=== PATIENT | female | born 1945 | race Caucasian/White ===

== ENCOUNTER 2016-11-09 18:04 | Emergency (ER) | payer MEDICARE, MEDICAID ==
[2016-11-09] MEDS ORDERED: Levofloxacin 500 MG Tab PO ONE (18:05)
[2016-11-09] MEDS ORDERED: Albuterol/Ipratropium 3.0-0.5 MG/3 ML Neb Soln INH ONE (18:05)
[2016-11-09] MEDS ORDERED: predniSONE 20 MG Tab PO ONE (18:05)
[2016-11-09 18:09] VITALS: BP 114/72
[2016-11-09] MEDS ORDERED: Albuterol/Ipratropium 3.0-0.5 MG/3 ML Neb Soln NEB ONE (18:23)
--- NOTE | 2016-11-09 18:29 | EDM.PDOC ---
ED HPI GENERAL MEDICAL PROBLEM - General Chief Complaint: Respiratory Problem Stated Complaint: SOB, COUGH Time Seen by Provider: 11/09/16 18:22 Source of Information: Reports: Patient History Limitations: Reports: No Limitations - History of Present Illness INITIAL COMMENTS - FREE TEXT/NARRATIVE: This patient is a 71 year old female that presents to the ER. Patient reports that started Friday night with a cough. She then reports that on she started with runny nose, congestion, drainage, productive cough, chest congestion, wheezing, shortness of breath. She reports that she was seen by her PCP yesterday, was given injection of steroid and abx. She reports that today she feels about the same as yesterday, with a little more chest congestion today. 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 Pharmacy is now closed. Patient reports having INR draw done yesterday. The patient is alert and oriented. She is able to converse in full and complete sentences. She does not appear in acute distress. Onset Date: 11/06/16 Duration: Day(s): (3) Severity: Mild Improves with: Reports: None Worsens with: Reports: None Associated Symptoms: Reports: Cough, cough w sputum, Shortness of Breath. Denies: Confusion, Chest Pain, Diaphoresis, Fever/Chills, Headaches, Loss of Appetite, Malaise, Nausea/Vomiting, Rash, Seizure, Syncope, Weakness - Related Data Allergies Allergy/AdvReac Type Severity Reaction Status Date / Time No Known Allergies Allergy Verified 11/09/16 18:19 Home Meds: Home Meds Alendronate Sodium [Alendronate] 70 mg PO SA 11/09/16 [History] Aspirin [Halfprin] 81 mg PO DAILY 11/09/16 [History] Carvedilol [Carvedilol] 3.125 mg PO DAILY 11/09/16 [History] Cholecalciferol (Vitamin D3) [Vitamin D3] 2,000 unit PO DAILY 11/09/16 [History] Digoxin [Digoxin] 125 mcg PO DAILY 11/09/16 [History] Furosemide [Furosemide] 40 mg PO QAM 11/09/16 [History] Furosemide [Furosemide] 80 mg PO QPM 11/09/16 [History] Glucosamine HCl [Glucosamine] 3,000 mg PO DAILY 11/09/16 [History] Levothyroxine [Levothyroxine] 125 mcg PO DAILY 11/09/16 [History] Lidocaine 5% [Lidoderm 5%] 700 mg TOP DAILY PRN 11/09/16 [History] Lisinopril [Lisinopril] 2.5 mg PO DAILY 11/09/16 [History] Multivitamin [Daily Multiple Vitamin] 1 tab PO DAILY 11/09/16 [History] Spironolactone [Aldactone] 25 mg PO DAILY 11/09/16 [History] Vitamin B Complex 1 each PO DAILY 11/09/16 [History] Warfarin Sodium [Warfarin Sodium] 2.5 mg PO DAILY 11/09/16 [History] atorvaSTATin Calcium [Atorvastatin Calcium] 20 mg PO DAILY 11/09/16 [History] ED ROS GENERAL - Review of Systems Review Of Systems: See Below Constitutional: Reports: No Symptoms HEENT: Reports: Rhinitis, Sinus Problem Respiratory: Reports: Shortness of Breath, Wheezing, Cough, Sputum Cardiovascular: Reports: No Symptoms. Denies: Chest Pain Endocrine: Reports: No Symptoms GI/Abdominal: Reports: No Symptoms : Reports: No Symptoms Musculoskeletal: Reports: No Symptoms Skin: Reports: No Symptoms Neurological: Reports: No Symptoms Psychiatric: Reports: No Symptoms Hematologic/Lymphatic: Reports: No Symptoms Immunologic: Reports: No Symptoms ED EXAM, GENERAL - Physical Exam Exam: See Below Exam Limited By: No Limitations General Appearance: Alert, WD/WN, No Apparent Distress Eye Exam: Bilateral Eye: Normal Inspection, PERRL Ears: Normal External Exam, Normal Canal, Hearing Grossly Normal, Normal TMs Ear Exam: Bilateral Ear: Auricle Normal, Canal Normal, TM normal Nose: Normal Inspection, Normal Mucosa, No Blood Throat/Mouth: Normal Inspection, Normal Lips, Normal Teeth, Normal Gums, Normal Oropharynx, Normal Voice, No Airway Compromise Head: Atraumatic, Normocephalic Neck: Normal Inspection, Supple, Non-Tender, Full Range of Motion Respiratory/Chest: No Respiratory Distress, No Accessory Muscle Use, Chest Non- Tender, Wheezing (Bilateral upper inspiratory and expiratory. ). No: Respiratory Distress Cardiovascular: Normal Peripheral Pulses, Regular Rate, Rhythm, No Edema, No Gallop, No JVD, No Murmur, No Rub Peripheral Pulses: 2+: Radial (L), Radial (R), Posterior Tibial (L), Posterior Tibial (R), Dorsalis Pedis (L), Dorsalis Pedis (R) Extremities: Normal Inspection, Normal Range of Motion, Non-Tender, No Pedal Edema, Normal Capillary Refill Neurological: Alert, Oriented, Normal Cognition, Normal Gait Psychiatric: Normal Affect, Normal Mood Skin Exam: Warm, Dry, Intact, Normal Color, No Rash Lymphatic: No Adenopathy Course - Vital Signs Last Recorded V/S: Last Vital Signs Temp 96.5 F 11/09/16 18:06 Pulse 89 11/09/16 18:06 Resp 18 11/09/16 18:06 BP 114/72 11/09/16 18:06 Pulse Ox 94 L 11/09/16 18:06 - Orders/Labs/Meds Orders: Active Orders 24 hr Category Date Time Status RT Aerosol Therapy [RC] ASDIRECTED Care 11/09/16 18:23 Active Chest 2V [CR] Stat Exams 11/09/16 18:22 Ordered CULTURE BLOOD [BC] Stat Lab 11/09/16 18:35 Received CULTURE BLOOD [BC] Stat Lab 11/09/16 18:45 Received Blood Culture x2 Reflex Set [OM.PC] Stat Oth 11/09/16 18:23 Ordered Labs: Laboratory Tests 11/09/16 11/09/16 11/09/16 Range/Units 18:35 18:35 18:35 WBC 8.3 (5.0-10.0) 10^3/uL RBC 5.10 (4.00-5.50) 10^6/uL Hgb 14.6 (12.0-16.0) g/dL Hct 45.0 (37.0-47.0) % MCV 88.2 (82.0-94.0) fL MCH 28.6 (27.0-32.0) pg MCHC 32.4 L (33.0-38.0) g/dL RDW Coeff of Kenia 15.9 H (11.0-15.0) % Plt Count 180 (150-400) 10^3/uL Neut % (Auto) 76.4 (35-85) % Lymph % (Auto) 12.4 (10-55) % Collin % (Auto) 9.8 (0-16) % Eos % (Auto) 1.0 (0-5) % Baso % (Auto) 0.4 (0-3) % Neut # (Auto) 6.37 (1.80-7.00) 10^3/uL Lymph # (Auto) 1.03 (1.00-4.80) 10^3/uL Collin # (Auto) 0.82 H (0.00-0.80) 10^3/uL Eos # (Auto) 0.08 (0.00-0.45) 10^3/uL Baso # (Auto) 0.03 10^3/uL Sodium 141 (136-145) mEq/L Potassium 4.6 (3.5-5.0) mEq/L Chloride 105 (98-106) mEq/L Carbon Dioxide 28 (21-32) mmol/L BUN 19 H (7-18) mg/dL Creatinine 0.8 (0.6-1.0) mg/dL Est Cr Clr Drug Dosing 48.67 mL/min Estimated GFR (MDRD) > 60 (>=60) mL/min Glucose 125 H (75-99) mg/dL Lactic Acid 1.4 (0.4-2.0) mmol/L Calcium 8.6 (8.4-10.1) mg/dL Total Bilirubin 1.2 H (0.0-1.0) mg/dL AST 41 H (15-37) U/L ALT 53 (12-78) U/L Alkaline Phosphatase 89 (46-116) U/L NT-Pro-B Natriuret Pep 8032 H (0-1000) pg/mL Total Protein 6.9 (6.4-8.2) g/dL Albumin 3.7 (3.4-5.0) g/dL Meds: Medications Discontinued Medications Generic Name Dose Route Start Last Admin Trade Name Freq PRN Reason Stop Dose Admin Albuterol/Ipratropium 3 ml 11/09/16 18:23 11/09/16 18:45 Duoneb 3.0-0.5 Mg/3 Ml NEB 11/09/16 18:24 3 ml ONETIME ONE Administration Albuterol/Ipratropium 3 packet 11/09/16 19:28 Take Home: Albuterol/Ipratropium, 4 Neb Pack NEB 11/09/16 19:29 ONETIME ONE Ceftriaxone Sodium 1 gm 11/09/16 19:29 Rocephin IM 11/09/16 19:30 ONETIME ONE Levofloxacin 1 packet 11/09/16 19:28 Take Home: Levofloxacin 500 Mg, 1 Tab Pack PO 11/09/16 19:29 ONETIME ONE Lidocaine HCl 20 ml 11/09/16 19:29 Xylocaine 1% INJECT 11/09/16 19:30 ONETIME ONE Methylprednisolone Sodium Succinate 125 mg 11/09/16 19:30 Solu-Medrol IM 11/09/16 19:31 NOW STA Prednisone 1 packet 11/09/16 19:28 Take Home: Prednisone 20 Mg, 2 Tab Pack PO 11/09/16 19:29 ONETIME ONE - Radiology Interpretation Free Text/Narrative:: CXR: LLL small infiltrate. Cardiac enlargement moderate size chronic known but larger than previous 4 year ago cxr. Pacemaker in place. No pulmonary edema. - Re-Assessments/Exams Free Text/Narrative Re-Assessment/Exam: 11/09/16 19:27 This patient after breathing treatment is now 97% RA. She is moving much more air. Feels less short of breath. I will give a shot of abx and steroids in ER and discharge home. No fever, no wbc elevation, no distress. The patient has greater than 8000 BNP. She reports that she was not takeing her lasix while out of town this week either. The patent has no edema on exam and no pulmonary edema. I will have her just continue back on her lasix at home as prescribed as I believe her dypsnea is due to her pneumonia. But, she should take her lasix as prescribed. Departure - Departure Time of Disposition: 19:35 Disposition: Home, Self-Care 01 Condition: Fair Clinical Impression: Pneumonia Qualifiers: Pneumonia type: due to unspecified organism Laterality: left Lung location: lower lobe of lung Qualified Code(s): J18.1 - Lobar pneumonia, unspecified organism - Discharge Information Instructions: Community-Acquired Pneumonia, Adult, [id number] Referrals: Randy Grimaldo MD [Primary Care Provider] - Forms: ED Department Discharge Additional Instructions: Followup with your primary care provider Return to the ER for worsening of condition or any emergent concerns Duoneb 1 neb treatment every 4 hours as needed for shortness of breath #12 take home. #30 prescription Prednisone 20mg 1 pill twice a day for 5 days #2 take home; #8 prescription no refill 1 neb machine to go Levaquin 500mg 1 pill take home to take Friday Levaquin 750mg 1 pill once a day for 5 days #5 no refill Tylenol or Motrin for fever Take your lasix as prescribed - My Orders Last 24 Hours: My Active Orders 11/09/16 18:22 Chest 2V [CR] Stat 11/09/16 18:23 RT Aerosol Therapy [RC] ASDIRECTED Blood Culture x2 Reflex Set [OM.PC] Stat 11/09/16 18:35 CULTURE BLOOD [BC] Stat 11/09/16 18:45 CULTURE BLOOD [BC] Stat - Assessment/Plan Last 24 Hours: My Active Orders 11/09/16 18:22 Chest 2V [CR] Stat 11/09/16 18:23 RT Aerosol Therapy [RC] ASDIRECTED Blood Culture x2 Reflex Set [OM.PC] Stat 11/09/16 18:35 CULTURE BLOOD [BC] Stat 11/09/16 18:45 CULTURE BLOOD [BC] Stat Plan: PLEASE SEE RN NOTE FOR PFSH.
[2016-11-09 19:25] LABS: CHLORIDE,CL 105 mEq/L (98-106); SODIUM,NA 141 mEq/L (136-145)
[2016-11-09] MEDS ORDERED: Take Home: Albuterol/Ipratropium 3.0-0.5 MG/3 ML Neb Soln, 4 Neb Pack NEB ONE (19:28)
[2016-11-09] MEDS ORDERED: Take Home: Levofloxacin 500 MG Tab, 1 Tab Pack PO ONE (19:28)
[2016-11-09] MEDS ORDERED: Take Home: predniSONE 20 MG, 2 Tab Pack PO ONE (19:28)
[2016-11-09] MEDS ORDERED: Lidocaine 1% 20 ML MDV INJECT ONE (19:29)
[2016-11-09] MEDS ORDERED: cefTRIAXone 1 GM Vial IM ONE (19:29)
[2016-11-09] MEDS ORDERED: methylPREDNISolone Sodium Succinate 125 MG/2 ML SDV IM STA (19:30)
== END 2016-11-09 20:07 | disposition home or self-care (01) ==
LOC: CC.ED 18:04
DX: J18.9 Pneumonia, unspecified organism (principal); Z79.82 Long term (current) use of aspirin; Z79.01 Long term (current) use of anticoagulants; Z79.899 Other long term (current) drug therapy
CPT/HCPCS: 36415; 71020; 80053; 83605; 83880; 85025; 87040; 94640; 96372; 99284; A9270; J0696; J2930